=== PATIENT | male | born 1995 | race Caucasian/White ===

== ENCOUNTER 2019-08-19 16:53 | Emergency (ER) | payer OTHER ==
[2019-08-19 17:55] VITALS: BP 121/79; PULSE 106; TEMP 97.7
--- NOTE | 2019-08-19 18:04 | PDOC ---
Rapid Medical Evaluation Medical Evaluation: Vital Signs Temp Pulse Resp BP Pulse Ox 97.7 F 106 H 18 121/79 100 08/19/19 17:54 08/19/19 17:54 08/19/19 17:54 08/19/19 17:54 08/19/19 17:54 08/19/19 17:54 HPI: COVID-19 CDC guideline data points: The patient is a 24 year old male presents with no known exposure to, suspected, or confirmed COVID-19 with associated symptoms of nausea, no vomiting, eye pain x today. Here with mother who has the same symptoms. Otherwise: (-) diarrhea, (-) abd pain (-) fever, (-) dry cough, (-) SOB, (-) anorexia, (-) diarrhea], complicated by no comorbidities ROS: NEGATIVE: difficulty breathing, shortness of breath, chest pain, l ightheadedness, dizziness, nausea, vomiting and diarrhea. Other 12 point ROS reviewed and negative. Exam: General: NAD, Well-Appearing, Awake, Alert Oriented x3. Vital signs stable. ENT: No rhinorrhea or nasal congestion, no eye discharge or redness Neck: FROM, no midline tenderness. Lungs: Clear to auscultation bilaterally without wheezes, rhonchi or rales. Normal excursion. Patient is able to speak in full sentences. Heart: HR: Regular rhythm, S1-S2 present, no murmurs rubs or gallops. Abdomen: Non-distended. MSK/Extremities: No decrease ROM, No obvious deformities. No obvious cyanosis noted. Neuro: Normal Gait, Cranial Nerves II through XII Grossly Intact. Skin: No obvious rashes, bruising. Color Normal Appearing. ASSESSMENT: The patient is a 24 year old male presents with no known exposure to, suspected, or confirmed COVID-19 with associated symptoms of nausea, no vomiting, eye pain x today. Here with mother who has the same symptoms. Otherwise: (-) diarrhea, (-) abd pain (-) fever, (-) dry cough, (-) SOB, (-) anorexia, (-) diarrhea], complicated by no comorbidities Denies recent travel and known Covid exposure. Patient does not meet testing criteria at this time. Treatment: d/c home COVID instructions Discharge Disposition - Diagnosis Flu - Discharge Dispostion Disposition: HOME Condition at time of disposition: Stable - Referrals - Patient Instructions Printed Discharge Instructions: [facility]Coronavirus Instructions, [facility] COVID-19 Isolation Protocol Additional Instructions: you may have symptoms for the stoll virus. you must self quarantine, take tylenol for fever and pain. Return to the ED only for respiratory distress, vomiting many episodes. call the number given for COVID testing. - Post Discharge Activity
== END 2019-08-19 18:55 | disposition home or self-care (01) ==
LOC: JER 16:53
DX: J11.1 Influenza due to unidentified influenza virus with other respiratory manifestations (principal)
CPT/HCPCS: 99282-25

== ENCOUNTER 2023-09-23 03:18 | Emergency (ER) | payer OTHER ==
[2023-09-23 03:24] VITALS: BP 111/53; PULSE 74; RESP 20; TEMP 98.4; BMI 21.1
[2023-09-23 04:16] LABS: THROAT:GRP A STREP NOT DETECTED (NOTDETECTED)
== END 2023-09-23 05:39 | disposition home or self-care (01) ==
LOC: JER 03:18
DX: J02.9 Acute pharyngitis, unspecified (principal); R05.9 Cough, unspecified; J00 Acute nasopharyngitis [common cold]; Z20.822 Contact with and (suspected) exposure to COVID-19
CPT/HCPCS: 0241U-QW; 87651; 99283-25